=== PATIENT | male | born 1980 | race Caucasian/White ===

== ENCOUNTER 2018-10-30 18:26 | Emergency (ER) | payer OTHER ==
[~2018-10-30] VITALS: Ht 175.2 cm; Wt 152.0 kg
[~2018-10-30 18:26] MED LIST: METFORMIN500 MG PO; PRAVACHOL20 MG PO; PROTONIX20 MG PO; ZOFRAN ODT4 MG SL
[2018-10-30 18:50] LABS: BILIRUBIN NEGATIVE (NEGATIVE); BLOOD 3+ (NEGATIVE); CLARITY CLEAR (CLEAR); COLOR YELLOW (YELLOW); GLUCOSE NEGATIVE (NEGATIVE); KETONE TRACE (NEGATIVE); LEUKO ESTERASE NEGATIVE (NEGATIVE); NITRITE NEGATIVE (NEGATIVE); PH 6.5 (5.0-9.0); UROBILINOGEN 0.2 E.U./dl (0.2-1.0)
[2018-10-30 19:05] LABS: BASO # 0.1 10*3/uL (0.0-0.1); BASO % 0.7 % (0.0-1.0); EOS # 0.1 10*3/uL (0.0-0.4); EOS % 1.2 % (1.0-4.0); HEMATOCRIT 34.1 % (42.0-52.0); LYMPH # 1.6 10*3/uL (1.3-4.4); LYMPH % 19.7 % (27.0-41.0); MEAN CELL VOLUME 71.5 fl (80.0-94.0); MEAN CORPUSCULAR HGB CONC 29.3 g/dl (33.0-37.0); MEAN PLATELET VOLUME 9.9 fl (9.6-12.3); MONO # 0.5 10*3/uL (0.1-1.0); MONO % 6.3 % (3.0-9.0); NEUT # 5.9 10*3/uL (2.3-7.9); NEUT % 71.7 % (47.0-73.0); PLATELET COUNT AUTOMATED 300 10*3/uL (130-400); RED BLOOD COUNT 4.77 10*6/uL (4.50-5.90); RED CELL DISTRI WIDTH 24.8 % (0-14.5); WHITE BLOOD COUNT 8.2 10*3/uL (4.8-10.8)
[2018-10-30 19:09] LABS: BACTERIA 2+; EPITHELIAL CELLS 0-2; MUCOUS 2+; RBC TNTC rbc/hpf (0-2)
[2018-10-30 19:21] LABS: ALBUMIN 3.5 gm/dl (3.1-4.5); ALKALINE PHOSPHATASE 74 U/L (45-117); BUN 20 mg/dl (7-24); CHLORIDE 106 mmol/L (98-107); CREATININE 1.22 mg/dL (0.70-1.30); SGOT/AST 13 IU/L (3-35); SGPT/ALT 23 U/L (12-78); SODIUM 138 mmol/L (136-145); TOTAL PROTEIN 7.2 gm/dL (6.4-8.2)
[2018-10-30] MEDS ORDERED: VICODIN 5-3001 EACH PO (20:12)
[2018-10-30] MEDS ORDERED: FLOMAX0.4 MG PO (20:12)
[2018-10-30] MEDS ORDERED: ZOFRAN4 MG PO (20:12)
== END 2018-10-30 21:41 | disposition home or self-care (01) ==
LOC: ED 18:26
PROVIDERS: Nurse Practitioner Family
DX: N13.2 Hydronephrosis with renal and ureteral calculous obstruction (principal); Z87.442 Personal history of urinary calculi; Z88.5 Allergy status to narcotic agent; Z79.899 Other long term (current) drug therapy; Z79.84 Long term (current) use of oral hypoglycemic drugs

== ENCOUNTER 2025-05-16 05:55 | Emergency (ER) | payer BC ==
[~2025-05-16] VITALS: Ht 175.2 cm; Wt 129.3 kg
[~2025-05-16 05:55] MED LIST changes: +FLOMAX0.4 MG PO; +VICODIN 5-3001 EACH PO; +ZOFRAN4 MG PO
[2025-05-16] MEDS ORDERED: SODIUM CHLORIDE 0.9% 1,000 ML IV ONE (06:10)
[2025-05-16] MEDS ORDERED: IOHEXOL 300 MG/ML 100 ML VIAL IV ONE (06:25)
[2025-05-16 06:32] LABS: BASO # 0.1 10*3/uL (0.0-0.1); BASO % 1.0 % (0.0-1.0); EOS # 0.1 10*3/uL (0.0-0.4); EOS % 1.7 % (1.0-4.0); MEAN CELL VOLUME 84.3 fl (80.0-94.0); MEAN CORPUSCULAR HGB 29.8 pg (27.0-31.0); MEAN PLATELET VOLUME 10.7 fl (9.6-12.3); MONO # 0.6 10*3/uL (0.1-1.0); MONO % 7.1 % (3.0-9.0); NEUT # 5.3 10*3/uL (2.3-7.9); NEUT % 64.8 % (47.0-73.0); NUCLEATED RED BLOOD CELL 0.0 % (0.0-0.0); NUCLEATED RED BLOOD CELL 0.0 10*3/uL (0.0-0.0); PLATELET COUNT AUTOMATED 218 10*3/uL (130-400); RED CELL DISTRI WIDTH 11.7 % (0-14.5)
[2025-05-16 06:54] LABS: BUN 17 mg/dl (9-23); SGPT/ALT 15 U/L (5-49)
[2025-05-16] MEDS ORDERED: Ondansetron4 MG PO (07:53)
[2025-05-16] MEDS ORDERED: FLOMAX0.4 MG PO (07:53)
[2025-05-16] MEDS ORDERED: PERCOCET 5-3251 EACH PO (07:53)
== END 2025-05-16 07:57 | disposition home or self-care (01) ==
LOC: ED 05:55
PROVIDERS: Internal Medicine
DX: N20.1 Calculus of ureter (principal); R11.2 Nausea with vomiting, unspecified; Z88.5 Allergy status to narcotic agent; Z98.890 Other specified postprocedural states; Z90.89 Acquired absence of other organs; Z87.442 Personal history of urinary calculi

== ENCOUNTER → 2025-06-19 | Outpatient (CLI) | payer BC ==
[~2025-06-19] MED LIST changes: +Ondansetron4 MG PO; +PERCOCET 5-3251 EACH PO
[2025-06-19 17:26] LABS: BASO # 0.1 10*3/uL (0.0-0.1); BASO % 0.9 % (0.0-1.0); EOS # 0.2 10*3/uL (0.0-0.4); EOS % 1.7 % (1.0-4.0); MEAN CELL VOLUME 88.7 fl (80.0-94.0); MEAN CORPUSCULAR HGB 30.1 pg (27.0-31.0); MEAN PLATELET VOLUME 11.1 fl (9.6-12.3); MONO # 0.5 10*3/uL (0.1-1.0); MONO % 6.0 % (3.0-9.0); NEUT # 6.6 10*3/uL (2.3-7.9); NEUT % 73.4 % (47.0-73.0); NUCLEATED RED BLOOD CELL 0.0 % (0.0-0.0); NUCLEATED RED BLOOD CELL 0.0 10*3/uL (0.0-0.0); PLATELET COUNT AUTOMATED 227 10*3/uL (130-400); RED CELL DISTRI WIDTH 11.7 % (0-14.5)
[2025-06-19 17:41] LABS: BUN 19 mg/dl (9-23); LDL CHOLESTEROL 150 mg/dL (9-159); SGPT/ALT 15 U/L (5-49)
[2025-06-19 17:42] LABS: VITAMIN D, 25-HYDROXY 35.4 ng/mL (30-100)
[2025-06-23 11:07] LABS: TESTOS, FREE 5.4 pg/mL (6.8-21.5)
== END | disposition home or self-care (01) ==
LOC: ZRHCWE 10:08
PROVIDERS: ATTEND Nurse Practitioner Family
DX: I10 Essential (primary) hypertension (principal); E88.810 Metabolic syndrome; R53.82 Chronic fatigue, unspecified; G47.33 Obstructive sleep apnea (adult) (pediatric); Z13.1 Encounter for screening for diabetes mellitus; Z13.29 Encounter for screening for other suspected endocrine disorder